=== PATIENT | female | born 1945 | race Caucasian/White ===

== ENCOUNTER 2021-01-01 18:51 | Emergency (ER) | payer OTHER ==
[~2021-01-01 18:51] MED LIST: BENTYL10 MG PO
[2021-01-01 19:35] LABS: BASOPHIL 0.2 % (0-2); EOSINOPHIL 1.5 % (0-7); HCT 39.6 % (37.0-47.0); HGB 12.6 g/dl (12.5-16.0); LYMPHOCYTE 10.9 % (15-48); MCH 28.6 pg (25.0-31.0); MCHC 31.8 g/dL (32.0-36.0); MCV 89.8 fL (78.0-100.0); MONOCYTE 15.9 % (0-12); MPV 10.2 fL (6.0-9.5); NEUTROPHIL 64.1 % (41-80); NRBC 0; PLT 221 K/uL (150-400); RBC 4.41 M/uL (4.20-5.40); RDW 14.5 % (11.5-14.0); WBC 12.3 K/uL (4.0-10.5)
[2021-01-01 20:01] LABS: ALBUMIN 3.1 g/dL (3.4-5.0); BILIRUBIN - TOTAL 0.5 mg/dL (0.2-1.0); BUN/CREAT RATIO (CALC) 25.9 RATIO; CREATININE 0.58 mg/dL (0.51-0.95); GLOBULIN (CALCULATION) 4.4 g/dL; POTASSIUM 3.8 mmol/L (3.5-5.1); TOTAL PROTEIN 7.5 g/dL (6.4-8.2)
[2021-01-01 21:23] LABS: CORONAVIRUS 2019 SARS-COV-2 NEGATIVE (NEGATIVE); INFLUENZA A NAA NEGATIVE (NEGATIVE)
[2021-01-01] MEDS ORDERED: LEVAQUIN750 MG PO (22:55)
[2021-01-01] MEDS ORDERED: MEDROL 4MG DOSEP4 MG PO (22:55)
== END 2021-01-01 23:10 | disposition home or self-care (01) ==
LOC: FER 18:51
PROVIDERS: Nurse Practitioner Family
DX: J18.9 Pneumonia, unspecified organism (principal); I10 Essential (primary) hypertension; E11.9 Type 2 diabetes mellitus without complications; J44.9 Chronic obstructive pulmonary disease, unspecified; Z20.822 Contact with and (suspected) exposure to COVID-19
CPT/HCPCS: 36415; 36600; 71045; 71275; 80053; 82803; 85025; 85379; J0456; J0696; J1100; J7050; Q9967; U0002